=== PATIENT | female | born 1985 | race Hispanic/Latino ===

== ENCOUNTER 2017-09-30 21:09 | Emergency (ER) | payer SELFPAY ==
[2017-09-30] MEDS ORDERED: NA CHLORIDE 0.9% 1,000 ML ONE (21:47)
[2017-09-30] MEDS ORDERED: DIPHENHYDRAMINE 50 MG/ML VIAL ONE (21:47)
[2017-09-30] MEDS ORDERED: FAMOTIDINE 20 MG/2 ML VIAL IV ONE (21:47)
[2017-09-30] MEDS ORDERED: METHYLPREDNISOLONE 125 MG INJ ONE (21:47)
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
--- NOTE | 2017-10-01 12:11 | EKG ---
Test Date: 2017-09-30 Test Time: 21:37:24 Trip Rider: JOSE A MEASUREMENT RESULTS: Intervals: Rate: 99 RI: 130 QRSD: 92 QT: 354 QTc: 454 [place]: P: 76 RI: 130 QRS: 79 T: -16 INTERPRETIVE STATEMENTS: Normal sinus rhythm Cannot rule out Inferior infarct, age undetermined Abnormal ECG No previous ECG available for comparison Electronically Signed On 10-01-17 12:10:51 CDT by Jose Maria Davis
== END 2017-09-30 23:11 | disposition home or self-care (01) ==
LOC: ER 21:09
DX: L50.9 Urticaria, unspecified (principal); T22.212A Burn of second degree of left forearm, initial encounter; T31.0 Burns involving less than 10% of body surface; Z88.8 Allergy status to other drugs, medicaments and biological substances
CPT/HCPCS: 93005; 96361; 96374; 96375; 99284; J2930; J7030